=== PATIENT | male | born 1955 | race African-American/Black ===

== ENCOUNTER 2021-07-04 16:52 | Inpatient (IN) | payer MEDICARE, OTHER ==
[~2021-07-04] VITALS: Ht 175.3 cm; Wt 87.1 kg
--- NOTE | 2021-07-04 17:00 | NUR ---
Receved pt 66 yrs male from home c/o abdominal pain on and off for one week pt hard stick unable to starte iv in pt
[2021-07-04] MEDS ORDERED: MORPHINE SULFATE 2 MG/1 ML DISP.SYRIN IV ONE (17:15)
[2021-07-04] MEDS ORDERED: ONDANSETRON 4 MG/2 ML VIAL IV ONE (17:15)
[2021-07-04] MEDS ORDERED: ASCO500P18 PO (17:28)
[2021-07-04] MEDS ORDERED: APIX5TAB PO (17:28)
[2021-07-04] MEDS ORDERED: ASPI81TA31 PO (17:28)
[2021-07-04] MEDS ORDERED: ATOR20TA PO (17:36)
[2021-07-04] MEDS ORDERED: BENZ-13 PO (17:36)
[2021-07-04] MEDS ORDERED: AZIT500T PO (17:36)
[2021-07-04] MEDS ORDERED: TRAM50TA2 PO (17:36)
[2021-07-04] MEDS ORDERED: IV NORMAL SALINE 250 ML IV ONE (17:36)
[2021-07-04] MEDS ORDERED: NITR0.4T48 SL (17:36)
[2021-07-04] MEDS ORDERED: IOHEXOL 350 100 ML INFUS..BTL ONE (17:36)
[2021-07-04] MEDS ORDERED: ISOS30TA86 PO (17:36)
[2021-07-04] MEDS ORDERED: PRED2.5T PO (17:36)
[2021-07-04] MEDS ORDERED: ENAL5TAB21 PO (17:36)
[2021-07-04] MEDS ORDERED: METO-356 PO (17:36)
[2021-07-04] MEDS ORDERED: FURO-152 PO (17:36)
[2021-07-04] MEDS ORDERED: LEVE500T9 PO (17:36)
[2021-07-04] MEDS ORDERED: SWABABLE VALVE TRANSFER SET EA MC ONE (17:36)
[2021-07-04] MEDS ORDERED: LISI20TA30 PO (17:36)
[2021-07-04] MEDS ORDERED: GABA-532 PO (17:36)
[2021-07-04 17:37] LABS: HEMATOCRIT 37.1 % (36.7-47.1); MEAN CORPUSCULAR HEMOGLOBIN 30.4 uug (23.8-33.4); MEAN CORPUSCULAR VOLUME 88.3 fL (73.0-96.2); PLATELET COUNT (AUTO) 243 K/uL (152-348)
[2021-07-04] MEDS ORDERED: ONDANSETRON 4 MG/2 ML VIAL ONE (17:43)
[2021-07-04] MEDS ORDERED: MORPHINE SULFATE 4 MG/1 ML DISP.SYRIN ONE (17:43)
[2021-07-04 17:54] LABS: CREATININE 1.6 mg/dL (0.6-1.3); POTASSIUM 5.2 mmol/L (3.5-5.1)
[2021-07-04 18:00] LABS: BILIRUBIN,DIRECT 0.2 mg/dL (0.0-0.2); BILIRUBIN,TOTAL 0.6 mg/dL (0.2-1.0); TOTAL PROTEIN, SERUM 6.9 g/dL (6.4-8.2)
--- NOTE | 2021-07-04 18:45 | NUR ---
inserted ango cath # 22 on lt ac plan to send pt to ct with iv contrast pt answer the qusener and sign consent
[2021-07-04] MEDS ORDERED: TRAMADOL HCL 50 MG TABLET PO PRN (19:00)
[2021-07-04] MEDS ORDERED: NITROGLYCERIN 0.4 MG/TAB BOTTLE SL SCH (19:00)
[2021-07-04] MEDS ORDERED: predniSONE 2.5 MG TABLET PO SCH (19:00)
--- NOTE | 2021-07-04 19:10 | NUR ---
HAND OFF TO Lico PADILLA
[2021-07-04 19:38] LABS: *BILIRUBIN,URIN NEGATIVE (NEGATIVE); *BLOOD, URINE NEGATIVE (NEGATIVE); *CLARITY,URINE CLEAR (CLEAR); *COLOR,URINE LIGHT YELLOW (YELLOW); *KETONES,URINE NEGATIVE (NEGATIVE); *UROBILINOGEN,URINE 0.2 E.U./dl (NORMAL); LEUKOCYTE ESTERASE ,URINE NEGATIVE (NEGATIVE); NITRITE, URINE NEGATIVE (NEGATIVE); PH,URINE 5.5 (5.0-8.0); UGLUCOSE NEGATIVE (NEGATIVE)
[2021-07-04] MEDS ORDERED: ATORVASTATIN 20 MG TABLET PO SCH (21:00)
--- NOTE | 2021-07-04 21:16 | NUR ---
bed assignment [id number]
--- NOTE | 2021-07-04 21:44 | NUR ---
Report given to sayda Amador RN
[2021-07-04] MEDS ORDERED: MAGNESIUM HYDROXIDE 30 ML LIQUID UDC PO PRN (22:00)
[2021-07-04] MEDS ORDERED: Z GUARD REMEDY PASTE 57 GM TUBE TOP PRN (22:00)
[2021-07-04] MEDS ORDERED: ACETAMINOPHEN 325 MG TABLET PO PRN (22:00)
[2021-07-04] MEDS ORDERED: IV NS 1000 ML 1,000 ML IV PRN (22:00)
[2021-07-04] MEDS ORDERED: MORPHINE SULFATE 2 MG/1 ML DISP.SYRIN IV PRN (22:00)
[2021-07-04] MEDS ORDERED: ONDANSETRON 4 MG/2 ML VIAL IV PRN (22:00)
[2021-07-04] MEDS ORDERED: PIPERACILLIN SODIUM/TAZOBACTAM 4.5 G in IV DEXTROSE 5% 50 ML IV SCH (22:00)
[2021-07-04 22:10] VITALS: BP 160/73
--- NOTE | 2021-07-04 22:10 | NUR ---
Admitted a 66 years old male with Dx of Cholecystitis. Patient AAOx4. In no acute distress. Denies any SOB. Complained of pain on Jimbo LE, described as sharp pain. Will provide pain medication per order. IV site on left AC intact and patent. A. Flutter on tele with HR of 64/min. environmental field services technician at bedside to do blood draw for troponin level but unable to obtain blood (hard stick). Stated she will try again in AM. Needs assessed and attended to. Routine admission care done. Plan of care initiated. Safety measure initiated and call light within reached.
--- NOTE | 2021-07-04 22:49 | NUR ---
Spoke to Dr. Negron to clarify order for several medication and for midline insertion. Obtain order for midline insertion and order to discontinue prednisone, NitroQuick and Vasotec. All order noted and carried out.
[2021-07-04] MEDS ORDERED: PIPERACILLIN/TAZO 4.5 GM VIAL IV ONE (22:52)
[2021-07-04] MEDS: PIPERACILLIN SODIUM/TAZOBACTAM 4.5 G in IV DEXTROSE 5% 50 ML IV SCH (22:53)
--- NOTE | 2021-07-04 23:34 | NUR ---
Brock in to place midline at bedside.
[2021-07-05 00:10] VITALS: BP 147/101
[2021-07-05 04:25] VITALS: BP 134/88
[2021-07-05] MEDS: PIPERACILLIN SODIUM/TAZOBACTAM 4.5 G in IV DEXTROSE 5% 50 ML IV SCH (05:09)
--- NOTE | 2021-07-05 06:13 | NUR ---
Patient in no acute distress. Denies any chest pain. Given Morphine 1mg IV for complain of omar. LE pain and effective. A. Flutter on tele with HR fluctuating from 45-63/min. Midline on right upper arm and PIV on left AC intact and patent. IVF infusing. No adverse reaction noted from IV antibiotics. NPO status. For HIDA scan today. Needs attended to and met. Safety measure maintained and call light within reached.
[2021-07-05 06:42] LABS: MEAN CORPUSCULAR HEMOGLOBIN 29.8 uug (23.8-33.4); PLATELET COUNT (AUTO) 258 K/uL (152-348)
[2021-07-05 06:58] LABS: BILIRUBIN,TOTAL 0.5 mg/dL (0.2-1.0); CREATININE 1.4 mg/dL (0.6-1.3); MAGNESIUM 1.8 mg/dL (1.8-2.4); PHOSPHOROUS 3.7 mg/dL (2.5-4.9); POTASSIUM 4.5 mmol/L (3.5-5.1); TOTAL PROTEIN, SERUM 6.7 g/dL (6.4-8.2)
[2021-07-05 07:04] LABS: NEUTROPHILS % (MANUAL) 0 % (42-75)
[2021-07-05] MEDS ORDERED: ENALAPRIL 5 MG TABLET PO SCH (09:00)
[2021-07-05] MEDS: METOPROLOL SUCCINATE XL 25 MG TAB.SR.24H PO SCH (09:00)
[2021-07-05] MEDS: FUROSEMIDE 20 MG TABLET PO SCH (09:38)
[2021-07-05] MEDS: ASPIRIN 81 MG TAB.CHEW PO SCH (09:38)
[2021-07-05] MEDS: BENZONATATE 100 MG CAPSULE PO SCH ×3 (09:38→16:54)
[2021-07-05] MEDS: ISOSORBIDE MONONITRATE 30 MG TAB.SR.24H PO SCH (09:38)
[2021-07-05] MEDS: GABAPENTIN 100 MG CAPSULE PO SCH ×3 (09:38→16:53)
[2021-07-05] MEDS: levETIRAcetam 500 MG TABLET PO SCH ×2 (09:38→16:53)
[2021-07-05] MEDS: CLOPIDOGREL 75 MG TABLET PO SCH (09:40)
[2021-07-05] MEDS: LISINOPRIL 20 MG TABLET PO SCH ×2 (09:41→16:53)
[2021-07-05 11:29] VITALS: BP 147/62
[2021-07-05] MEDS: PIPERACILLIN SODIUM/TAZOBACTAM 3.375 G in IV DEXTROSE 5% 100 ML IV SCH ×2 (13:17→21:03)
[2021-07-05 15:14] VITALS: BP 126/68
[2021-07-05] MEDS: APIXABAN 5 MG TABLET PO SCH (16:53)
--- NOTE | 2021-07-05 17:55 | NUR ---
Patient transported to nuclear medicine unit for Hida scan via wheelchair. No signs of acute distress.
[2021-07-05 20:25] VITALS: BP 140/58
[2021-07-05] MEDS ORDERED: ATORVASTATIN 20 MG TABLET PO SCH (21:00)
[2021-07-05] MEDS: ATORVASTATIN 40 MG TABLET PO SCH (21:02)
[2021-07-05] MEDS: ASCORBIC ACID 500 MG TABLET PO SCH (21:02)
[2021-07-06 00:15] VITALS: BP 111/72
[2021-07-06 04:30] VITALS: BP 148/92
[2021-07-06] MEDS: PIPERACILLIN SODIUM/TAZOBACTAM 3.375 G in IV DEXTROSE 5% 100 ML IV SCH ×3 (05:17→21:02)
--- NOTE | 2021-07-06 06:32 | NUR ---
END OF SHIFT REPORT Pt had HIDA scan last night; Patient rested well in between care; safety maintained; hourly rounding done; continue to monitor; continue plan of care.
--- NOTE | 2021-07-06 07:20 | NUR ---
Received patient resting in bed. AOx4. On room air. IV access patent and intact. No signs of acute distress. Patient denies pain/ discomfort at this time. Call light within reach. Will continue to monitor.
[2021-07-06 08:00] VITALS: BP 151/80
[2021-07-06] MEDS: METOPROLOL SUCCINATE XL 25 MG TAB.SR.24H PO SCH (08:30)
[2021-07-06] MEDS: ASPIRIN 81 MG TAB.CHEW PO SCH (08:30)
[2021-07-06] MEDS: ASCORBIC ACID 500 MG TABLET PO SCH ×2 (08:30→21:00)
[2021-07-06] MEDS: FUROSEMIDE 20 MG TABLET PO SCH (08:30)
[2021-07-06] MEDS: GABAPENTIN 100 MG CAPSULE PO SCH ×3 (08:30→17:47)
[2021-07-06] MEDS: BENZONATATE 100 MG CAPSULE PO SCH ×3 (08:30→17:41)
[2021-07-06] MEDS: levETIRAcetam 500 MG TABLET PO SCH ×2 (08:30→17:41)
[2021-07-06] MEDS: CLOPIDOGREL 75 MG TABLET PO SCH (08:32)
[2021-07-06] MEDS: APIXABAN 5 MG TABLET PO SCH ×2 (08:33→17:41)
[2021-07-06] MEDS: ISOSORBIDE MONONITRATE 30 MG TAB.SR.24H PO SCH (08:35)
[2021-07-06] MEDS: LISINOPRIL 20 MG TABLET PO SCH ×2 (08:35→17:50)
[2021-07-06 12:47] VITALS: BP 118/73
[2021-07-06 16:49] VITALS: BP 121/7
--- NOTE | 2021-07-06 18:39 | NUR ---
Patient AOx4. On room air. No signs of acute distress. Patient denies pain/ discomfort at this time. Compliant with medications and care. Atrial flutter on night monitor. IV access patent and intact. Bed locked and in low position. Call light within reach. Will endorse to incoming shift for continuity of care.
--- NOTE | 2021-07-06 19:45 | NUR ---
AO x 4, 100% saturation on RA, A flutter on tele monitor, sitting up watching TV, patient is able to state his needs, midline and IV intact and patent, call lights within reach, safety measures initiated.
--- NOTE | 2021-07-06 20:30 | NUR ---
9 vtach on tele monitor, patient is stable, BP: 145/83. HR 67, O2 100% MD YUDITH notified, per MD MG and K+ STAT labs ordered
[2021-07-06] MEDS: ATORVASTATIN 40 MG TABLET PO SCH (21:00)
[2021-07-06 21:10] LABS: MAGNESIUM 1.5 mg/dL (1.8-2.4); POTASSIUM 4.2 mmol/L (3.5-5.1)
--- NOTE | 2021-07-06 21:31 | NUR ---
Lab results received, MG 1.5. notified Dr. Negron, per MD give 2 gram Mg IV, no labs needed after administration
[2021-07-06] MEDS: MAGNESIUM SULFATE/D5W 100 ML IV SCH ×2 (22:42→23:51)
[2021-07-07 01:09] VITALS: BP 127/85
[2021-07-07 04:00] VITALS: BP 141/79
[2021-07-07] MEDS: PIPERACILLIN SODIUM/TAZOBACTAM 3.375 G in IV DEXTROSE 5% 100 ML IV SCH ×3 (05:06→21:08)
--- NOTE | 2021-07-07 05:33 | NUR ---
Patient slept intermittently throughout the night, AO x 4, 100% oxygen saturation on RA, Right upper arm midline intact, new right forearm IV line intact and patent, 2 grams Mg Sulfate Ivpb given and tolerated well, atrial flutter with 65 bpm on tele monitor, compliant with care, all needs has been met. Call lights within reach, safety measures maintained, will endorse to am shift.
[2021-07-07] MEDS: ASPIRIN 81 MG TAB.CHEW PO SCH (09:00)
[2021-07-07] MEDS: METOPROLOL SUCCINATE XL 25 MG TAB.SR.24H PO SCH (09:00)
[2021-07-07] MEDS: APIXABAN 5 MG TABLET PO SCH ×2 (09:00→16:34)
[2021-07-07] MEDS: GABAPENTIN 100 MG CAPSULE PO SCH ×3 (09:01→16:35)
[2021-07-07] MEDS: CLOPIDOGREL 75 MG TABLET PO SCH (09:01)
[2021-07-07] MEDS: levETIRAcetam 500 MG TABLET PO SCH ×2 (09:01→16:34)
[2021-07-07] MEDS: ASCORBIC ACID 500 MG TABLET PO SCH ×2 (09:01→20:43)
[2021-07-07] MEDS: BENZONATATE 100 MG CAPSULE PO SCH ×3 (09:01→16:35)
[2021-07-07] MEDS: FUROSEMIDE 20 MG TABLET PO SCH (09:08)
[2021-07-07] MEDS: ISOSORBIDE MONONITRATE 30 MG TAB.SR.24H PO SCH (09:18)
[2021-07-07] MEDS: LISINOPRIL 20 MG TABLET PO SCH ×2 (09:18→16:35)
[2021-07-07 11:24] VITALS: BP 168/87
[2021-07-07 15:22] VITALS: BP 151/88
[2021-07-07] MEDS: ATORVASTATIN 40 MG TABLET PO SCH (20:43)
[2021-07-07 20:44] VITALS: BP 127/78
[2021-07-08] VITALS: BP 134/88
[2021-07-08 05:11] VITALS: BP 130/68
--- NOTE | 2021-07-08 05:43 | NUR ---
Pt slept throughout the night. No distress noted. IV sites are intact. Antibiotics given, tolerated well with no complications. A-flutter on monitor. Pt denies chest pain or SOB. Safety and comfort provided. No other issues or concerns at this time, will endorse to day shift.
[2021-07-08] MEDS: PIPERACILLIN SODIUM/TAZOBACTAM 3.375 G in IV DEXTROSE 5% 100 ML IV SCH ×3 (06:41→21:18)
--- NOTE | 2021-07-08 07:20 | NUR ---
Patient received from foundation relations director nurse. Patient showing no signs of distress with IV sites intact with no complications. Patient is stable with no complaints. Bed left in lowest position with call light within reach.
[2021-07-08] MEDS: CLOPIDOGREL 75 MG TABLET PO SCH (08:35)
[2021-07-08] MEDS: ASPIRIN 81 MG TAB.CHEW PO SCH (08:35)
[2021-07-08] MEDS: METOPROLOL SUCCINATE XL 25 MG TAB.SR.24H PO SCH (08:36)
[2021-07-08] MEDS: ISOSORBIDE MONONITRATE 30 MG TAB.SR.24H PO SCH (08:36)
[2021-07-08] MEDS: BENZONATATE 100 MG CAPSULE PO SCH ×3 (08:36→17:05)
[2021-07-08] MEDS: LISINOPRIL 20 MG TABLET PO SCH ×2 (08:37→17:05)
[2021-07-08] MEDS: levETIRAcetam 500 MG TABLET PO SCH ×2 (08:37→17:05)
[2021-07-08] MEDS: ASCORBIC ACID 500 MG TABLET PO SCH ×2 (08:37→20:51)
[2021-07-08] MEDS: FUROSEMIDE 20 MG TABLET PO SCH (08:38)
[2021-07-08] MEDS: APIXABAN 5 MG TABLET PO SCH ×2 (08:38→17:08)
[2021-07-08] MEDS: GABAPENTIN 100 MG CAPSULE PO SCH ×3 (08:41→17:05)
[2021-07-08 11:23] VITALS: BP 155/84
[2021-07-08 15:19] VITALS: BP 139/87
--- NOTE | 2021-07-08 19:12 | NUR ---
Patient showed no signs of distress during the day shift. AxOx4. Right Upper Midline intact and patent. VS stable BP: 124/76, 98% on Room Air, HR: 91. Patient DC'd from Tele Monitor this afternoon. Compliant with all care. Bed left in the lowest position with call light within reach. Will endorse to oncoming slot shift supervisor.
[2021-07-08 20:15] VITALS: BP 123/75
[2021-07-08] MEDS: ATORVASTATIN 40 MG TABLET PO SCH (20:51)
[2021-07-09 04:17] VITALS: BP 108/84
--- NOTE | 2021-07-09 05:24 | NUR ---
Pt slept intermittently. IV site intact. Denies pain or SOB, no distress noted throughout the shift. Able to make needs known. Safety and comfort provided. Will endorse to day shift.
[2021-07-09] MEDS: PIPERACILLIN SODIUM/TAZOBACTAM 3.375 G in IV DEXTROSE 5% 100 ML IV SCH ×2 (06:42→13:01)
--- NOTE | 2021-07-09 07:36 | NUR ---
Received patient from night order selector nurse. Patient exhibiting no signs or symptoms of distress. AxOx4. Skin and IV intact. Bed placed in the lowest position with call light within reach. Safety and comfort provided.
[2021-07-09] MEDS: GABAPENTIN 100 MG CAPSULE PO SCH ×3 (08:17→16:14)
[2021-07-09] MEDS: ASPIRIN 81 MG TAB.CHEW PO SCH (08:17)
[2021-07-09] MEDS: BENZONATATE 100 MG CAPSULE PO SCH ×3 (08:18→16:14)
[2021-07-09] MEDS: levETIRAcetam 500 MG TABLET PO SCH ×2 (08:18→16:14)
[2021-07-09] MEDS: CLOPIDOGREL 75 MG TABLET PO SCH (08:18)
[2021-07-09] MEDS: ASCORBIC ACID 500 MG TABLET PO SCH (08:18)
[2021-07-09] MEDS: FUROSEMIDE 20 MG TABLET PO SCH (08:18)
[2021-07-09] MEDS: APIXABAN 5 MG TABLET PO SCH ×2 (08:19→16:15)
[2021-07-09] MEDS: LISINOPRIL 20 MG TABLET PO SCH ×2 (08:20→16:15)
[2021-07-09] MEDS: METOPROLOL SUCCINATE XL 25 MG TAB.SR.24H PO SCH (08:20)
[2021-07-09] MEDS: ISOSORBIDE MONONITRATE 30 MG TAB.SR.24H PO SCH (08:21)
[2021-07-09 11:31] VITALS: BP 158/71
[2021-07-09 11:55] VITALS: BP 131/80
[2021-07-09] MEDS ORDERED: ASPI-618 PO (13:27)
[2021-07-09] MEDS ORDERED: BENA20TA9 PO (13:27)
[2021-07-09] MEDS ORDERED: METO-357 PO (13:27)
[2021-07-09 15:44] VITALS: BP 114/69
[2021-07-09 16:15] VITALS: BP 114/71
--- NOTE | 2021-07-09 18:41 | NUR ---
Patient has been discharged at [id number]. Originally had scheduled an [employer] to continuous pickling line pickler the patient from the hospital, but tow truck driver had left the hospital before the patient was ready. Patient left hospital ambulatory and took bus for transportation back home instead. Completed antibiotics and scheduled medications administered this afternoon. Patient is AxOx4, with no signs of any distress. IV line removed. Midline removed. Discharge education implemented. Patient notified of follow up with Primary Doctor.
== END 2021-07-09 18:20 | disposition home health service (06) | DRG 444 ==
LOC: ER 16:55 → EDBD 21:54 → TELE3 21:54 → MEDSURG3 07-08 10:40
PROVIDERS: ADMIT Internal Medicine; ATTEND Internal Medicine
PROC: 05H933Z Insertion of Infusion Device into Right Brachial Vein, Percutaneous Approach (ICD-10-PCS; principal; 2021-07-04)
DX: K81.0 Acute cholecystitis (principal); I21.A1 Myocardial infarction type 2; I50.23 Acute on chronic systolic (congestive) heart failure; N17.0 Acute kidney failure with tubular necrosis; I13.0 Hypertensive heart and chronic kidney disease with heart failure and stage 1 through stage 4 chronic kidney disease, or unspecified chronic kidney disease; I48.92 Unspecified atrial flutter; R18.8 Other ascites; E87.1 Hypo-osmolality and hyponatremia; D68.59 Other primary thrombophilia; N18.9 Chronic kidney disease, unspecified; I25.10 Atherosclerotic heart disease of native coronary artery without angina pectoris; Z95.5 Presence of coronary angioplasty implant and graft; G40.909 Epilepsy, unspecified, not intractable, without status epilepticus; Z79.01 Long term (current) use of anticoagulants; Z79.82 Long term (current) use of aspirin; I25.5 Ischemic cardiomyopathy; E87.5 Hyperkalemia; E78.5 Hyperlipidemia, unspecified; I48.91 Unspecified atrial fibrillation; R91.1 Solitary pulmonary nodule; K57.90 Diverticulosis of intestine, part unspecified, without perforation or abscess without bleeding; K59.00 Constipation, unspecified; J44.9 Chronic obstructive pulmonary disease, unspecified; E11.22 Type 2 diabetes mellitus with diabetic chronic kidney disease; Z79.899 Other long term (current) drug therapy; Z20.822 Contact with and (suspected) exposure to COVID-19
CPT/HCPCS: 36415; 70030-TC; 71045; 78445; 83605; 83690; 83735; 84100; 84132; 85025; 93005; A4663; A9537; G0378; J2270; J2405; J2543; J3475; J7030; J7050; J7060; Q9967